=== PATIENT | female | born 1955 | race Two or more races ===

== ENCOUNTER 2018-10-26 19:56 | Emergency (ER) | payer SELFPAY ==
[~2018-10-26] VITALS: Ht 154.9 cm; Wt 63.5 kg
[2018-10-26 20:51] VITALS: BP 124/88
[2018-10-26] MEDS ORDERED: HYDROcodone-ACET 7.5/325MG TAB PO ONE (22:15)
[2018-10-26] MEDS ORDERED: BACLOFEN 10 MG TAB PO ONE (22:15)
== END 2018-10-26 22:30 | disposition home or self-care (01) ==
LOC: ER 19:56
DX: M62.838 Other muscle spasm (principal); M54.2 Cervicalgia; M25.512 Pain in left shoulder; V43.52XA Car driver injured in collision with other type car in traffic accident, initial encounter; Y93.89 Activity, other specified; Y99.8 Other external cause status; Y92.410 Unspecified street and highway as the place of occurrence of the external cause
CPT/HCPCS: 70450; 72125; 73030